=== PATIENT | female | born 1985 | race Caucasian/White ===

== ENCOUNTER 2016-09-07 16:54 | Inpatient (IN) | payer OTHER ==
[~2016-09-07] VITALS: Ht 165.1 cm; Wt 106.4 kg
[2016-09-08 13:09] VITALS: BP 108/59; PULSE 69; RESP 18
[2016-09-08 14:12] LABS: ADD UMIC YES; URINE BILIRUBIN (Dip) NEGATIVE (NEGATIVE); URINE BLOOD (Dip) TRACE (NEGATIVE); URINE COLOR LT. YELLOW (YELLOW); URINE GLUCOSE (Dip) NEGATIVE (NEGATIVE); URINE KETONES (Dip) NEGATIVE (NEGATIVE); URINE LEUKOCYTE ESTERASE (Dip) 1+ (NEGATIVE); URINE NITRITE (Dip) POSITIVE (NEGATIVE); URINE TOTAL PROTEIN (Dip) NEGATIVE (NEGATIVE); URINE UROBILINOGEN (Dip) 0.2 E.U./dL (0.1-1.0)
[2016-09-08 14:32] LABS: BACTERIA,URINE MANY; SQUAMOUS EPITHELIAL CELL,UR MODERATE
[2016-09-08] MEDS ORDERED: oxyCODONE 5 MG TAB PO PRN ×2 (15:00)
[2016-09-08] MEDS ORDERED: MAGNESIUM HYDROXIDE 30ML CUP PO PRN ×2 (15:00→19:00)
[2016-09-08] MEDS: FERROUS SULFATE (EC) 325 MG TAB PO SCH (17:56)
[2016-09-08] MEDS ORDERED: LACTULOSE 30ML CUP PO PRN (19:00)
[2016-09-08] MEDS ORDERED: ACETAMINOPHEN 325 MG TAB PO PRN (19:00)
[2016-09-08 20:00] VITALS: BP 99/55; RESP 18
[2016-09-08] MEDS: DOCUSATE SODIUM 100 MG CAP PO SCH (20:59)
[2016-09-08] MEDS: SENNA TAB PO SCH (20:59)
[2016-09-08] MEDS: HEPARIN 5,000 UNIT/0.5 ML VIAL SC SCH (21:00)
[2016-09-08] MEDS: METHOCARBAMOL 750 MG TAB PO SCH (21:00)
[2016-09-08] MEDS: HYDROCODONE/APAP (5/325) TAB PO PRN (21:07)
[2016-09-09] MEDS: ZOLPIDEM 5 MG TAB PO PRN ×2 (00:36→20:28)
[2016-09-09] MEDS: PANTOPRAZOLE (EC) 40 MG TAB PO SCH (06:36)
[2016-09-09 07:26] LABS: ADD SCAN DIFF NO
[2016-09-09 07:28] LABS: BASOPHIL # 0.1 10^3/ul (0.0-0.1); BASOPHILS % 0.6 % (0.0-2.0); EOSINOPHILS # 0.9 10^3/ul (0.0-0.5); HEMATOCRIT 37.7 % (37.0-47.0); HEMOGLOBIN 12.1 g/dl (12.0-16.0); LYMPHOCYTES # 3.2 10^3/ul (0.8-2.9); LYMPHOCYTES % 25.4 % (15.0-51.0); MEAN CORPUSCULAR HEMOGLOBIN 26.3 pg (29.0-33.0); MEAN CORPUSCULAR HGB CONC 32.1 g/dl (32.0-37.0); MEAN PLATELET VOLUME 10.6 fl (7.4-10.4); MONOCYTE # 0.9 10^3/ul (0.3-0.9); NEUTROPHIL # 7.6 10^3/ul (1.6-7.5); NEUTROPHILS % 59.4 % (39.0-77.0); PLATELET COUNT 322 10^3/UL (140-415); RED CELL DISTRIBUTION WIDTH 15.4 % (11.5-14.5); WHITE BLOOD COUNT 12.7 10^3/ul (4.8-10.8)
[2016-09-09 07:30] VITALS: BP 103/65; RESP 18
[2016-09-09 07:51] LABS: ALBUMIN 3.7 g/dl (3.3-4.9); ALBUMIN/GLOBULIN RATIO 1.12; CALCIUM 9.1 mg/dl (8.4-10.2); CREATININE 0.55 mg/dl (0.44-1.00); POTASSIUM 3.8 mmol/L (3.5-5.1)
[2016-09-09] MEDS: DOCUSATE SODIUM 100 MG CAP PO SCH ×2 (08:47→20:28)
[2016-09-09] MEDS: FERROUS SULFATE (EC) 325 MG TAB PO SCH ×3 (08:48→17:37)
[2016-09-09] MEDS: METHOCARBAMOL 750 MG TAB PO SCH ×3 (08:48→20:28)
[2016-09-09] MEDS: HEPARIN 5,000 UNIT/0.5 ML VIAL SC SCH ×2 (09:07→20:33)
--- NOTE | 2016-09-09 11:38 | HP ---
DATE OF ADMISSION: 09/08/2016 PHYSICAL MEDICINE AND REHABILITATION HISTORY AND PHYSICAL/PHYSICIAN POST- ADMISSION ASSESSMENT: DATE OF VISIT: 09/09/2016 REHABILITATION IMPAIRMENT GROUP: Cauda equina syndrome CHIEF COMPLAINT: Impaired mobility. Bilateral lower extremity weakness and paresthesias. HISTORY OF PRESENT ILLNESS: This is a 31-year-old female who initially presented to outside hospital after sustaining a fall while being assisted by EMS for right-sided flank pain. The patient reports she was diagnosed with gallstones and sent back home. The patient continued to have progressively worsening symptoms of right flank pain, also with radicular pain from her back into the lower extremities with onset of lower extremity weakness and paresthesias as well as urinary incontinence. The patient presented to outside hospital and had an MRI of her spine which showed a large L4 to L5 disk protrusion causing severe spinal canal stenosis with right greater than left neural foraminal narrowing; also noting L3 to L4 moderate central disk protrusion/ extrusion with mild spinal canal stenosis and small central disk protrusion at T7 to T8. The patient was evaluated by spine surgeon and in light of her symptoms and imaging findings, was suspected to have cauda equina syndrome and recommended urgent decompression. The patient went to the OR on and underwent a right L4 to L5 hemilaminectomy and microdiskectomy for cauda equina syndrome, right L4 to L5 disk herniation and lumbar radiculopathy by Dr. Brayden Patel with no reported intraoperative complications. Postoperatively, the patient reports improvement in her lower extremity weakness and improved sensation. Overall, more weakness and paresthesias in the right lower extremity than the left lower extremity. The patient's postoperative course was also complicated by hypotension which was thought to be multifactorial. The patient did work with physical and occupational therapies and currently she is requiring minimal assistance for her bed mobility and transfers. The patient is ambulating with moderate assistance 4 feet with a rolling walker. The patient is requiring moderate assistance for bathing, maximal assistance with lower body dressing and toileting, set up for grooming. Due to the patient's overall significant functional decline from baseline independent status and ongoing medical comorbidities, she was thought to benefit from acute inpatient rehabilitation. PAST MEDICAL AND SURGICAL HISTORY: As stated in history of present illness, also with history of iron deficiency anemia, on iron supplementation. FAMILY HISTORY: Reports noncontributory. SOCIAL HISTORY: Denies current toxic habits. The patient lives with her and children in a 1-story home with 1 step to enter. She reports prior level of function, she was completely independent for all functional mobility and self-care ADLs and was working in a rehab center. MEDICATIONS ON ADMISSION: Reviewed in electronic medical records includin. Protonix. 2. Ambien as needed. 3. Colace. 4. Robaxin. 5. Heparin. 6. Senna. 7. Milk of magnesia as needed. 8. Tylenol as needed. 9. Lactulose as needed. 10. Ferrous sulfate. 11. MiraLax as needed. 12. [place] 5/325 one to 2 tablets every 4 hours as needed. 13. Oxycodone 5 mg, 10 mg and 15 mg every 4 hours as needed 14. Simethicone as needed. 15. Dulcolax suppository as needed. ALLERGIES: NO KNOWN DRUG ALLERGIES. LABORATORIES AND IMAGING: Reviewed in electronic medical records. Admission labs today show WBC 12.7, hemoglobin 12.1, hematocrit 37.7, platelets 322. Sodium 135, potassium 3.8, BUN 17, creatinine 0.55. Urinalysis shows positive nitrites, 1+ leukocyte esterase, 10 to 25 WBCs with many bacteria. Urine culture is pending. REVIEW OF SYSTEMS: CONSTITUTIONAL: Denies fevers, chills. No night sweats. EYES: Denies any new visual changes. No pain. EARS, NOSE AND THROAT: Denies changes in hearing, no difficulty swallowing. RESPIRATORY: Denies shortness of breath or cough. CARDIOVASCULAR: Denies chest pain or dyspnea on exertion. GENITOURINARY: Has Steel catheter in place. No hematuria. GASTROINTESTINAL: Denies abdominal pain, no nausea or vomiting. Reports constipation. NEUROLOGICAL: Reports overall strength and sensation are improving since surgery. MUSCULOSKELETAL: She does report neuropathic type pain and occasional muscle spasms. SKIN: Denies itching. PSYCHIATRIC: Denies history of anxiety or depression. Review of systems otherwise negative. PHYSICAL EXAMINATION: VITAL SIGNS: Blood pressure 103/65, heart rate is 66, temperature 98.7 Fahrenheit, respiratory rate 18, saturating 99% on room air. GENERAL: The patient is well-nourished, well-developed, awake, alert, in no acute distress. HEENT: Normocephalic, atraumatic. Mucous membranes moist. Extraocular muscles are intact. NECK: Supple, nontender. RESPIRATORY: Lungs are clear to auscultation bilaterally. No crackles, wheezing. CARDIOVASCULAR: Regular rate and rhythm, audible S1, S2. ABDOMEN/: Abdomen soft, nontender, bowel sounds are present but hypoactive. No masses palpated. Steel catheter in place draining clear yellow urine. EXTREMITIES: Calves are nontender. There is no distal edema. No cyanosis. SKIN: There are no rashes. The lower back surgical incisional site has steristrips in place, clean, dry and intact. No active drainage is noted. There is some bruising in the lower abdominal area. PSYCHIATRIC: Affect and mood are appropriate. Oriented x3. NEUROLOGIC/MUSCULOSKELETAL: Follows simple commands and answers questions appropriately. Speech fluent. Strength is 5/5 in upper extremities, 3- to 3/5 in the right hip flexors, knee extensors, dorsiflexors, plantar flexors. Left lower extremity is 4 to 4+/5. The patient has decreased sensation to light touch below the umbilical region with decreased sensation of the right lower extremity more so than the left lower extremity. No increase in tone. No ankle clonus. IMPRESSION: 1. Status post right L4-L5 hemilaminectomy and microdiskectomy for right L4 to L5 disk herniation with severe spinal canal stenosis and cauda equina syndrome. 2. Evidence of L3-L4 moderate central disk protrusion/ extrusion with mild spinal canal stenosis, and small central disk protrusion at T7-T8 on MRI spine 3. Paraparesis. 4. Impaired mobility, gait and balance 5. Impaired self care ADLs 6. Acute pain syndrome with neuropathic pain and muscle spasms. 7. Neurogenic bowel. 8. Neurogenic bladder. 9. Urinary tract infection, present on admission 10. Leukocytosis 11. History of Iron deficiency anemia. 12. Hypotension. 13. Cholelithiasis PLAN: 1. The patient will be admitted for inpatient comprehensive interdisciplinary rehabilitation to address impairments and medical conditions listed above while assessing equipment needs and compensatory strategies with coordinated interdisciplinary services that will include physical and occupational therapies and close monitoring and treatment with 24-hour rehabilitation nursing. This interdisciplinary program will be performed under the direction of aircraft steel fabricator. The patient is anticipated to be able to tolerate 3 hours daily for at least 5 of 7 days per week of therapies. 2. Begin physical therapy for bed mobility, transfers, balance training, wheelchair mobility, gait training with assistive device and orthotic devices as needed. 3. Begin occupational therapies for activities of daily living, functional transfers, adaptive equipment evaluation, patient education. 4. Rehabilitation nursing to provide the patient education regarding spinal cord injury, as well as current medications as they relate to medical illness. Monitor pain, monitor bowel and bladder and administer bowel and bladder programs and reinforce those activities with physical and occupational therapies. 5. Dr. Whitley and associates will follow for management of medical comorbidities. 5. For her relative hypotension thought to be multifactorial, we will closely monitor vital signs, check orthostatics. Will defer to internal medicine in regards to further medical management. 6. For history of iron deficiency anemia, she is on iron supplementation. Monitor hemoglobin and hematocrit. 7. For neurogenic bowel, continue on a bowel program and adjust as needed for regular bowel movements. 8. For neurogenic bladder, currently, the patient has a Steel catheter in place. Urinalysis indicative of urinary tract infection. To start antibiotics and follow up urine cultures. Plan will be to remove steel catheter when more consistently mobile, check post void residuals and do in and out catheterizations as needed. 9. For her pain, caution with narcotics given her hypotension. Consider addition of gabapentin for neuropathic pain component. We will monitor her pain levels and adjust pain regimen further as needed. 10. Provide surgical site care and monitor for signs and symptoms of infection. She will need to follow up with spine surgeon. 11. Pressure relief strategies to include frequent turning and roho cushion while in wheelchair. REHABILITATION GOALS: Modified independent with bed mobility, transfers, self- care ADLs and progress with gait training with goal of at least stand by assistance level with assistive device. ESTIMATED LENGTH OF STAY: Approximately 10 to 14 days. Her case will be discussed at the weekly interdisciplinary conference. Anticipated disposition is to home with family support. PROGNOSIS: At the current time, this inpatient hospital rehabilitation stay is medically necessary to achieve important health and functional goals. The patient requires frequent physician visits, 24-hour rehabilitation nursing, and a coordinated intensive rehabilitation program as described above to address complex medical, nursing and rehabilitation needs. The patient has a good prognosis for benefiting from this program and returning to home and community. REHABILITATION PHYSICIAN POST-ADMISSION ASSESSMENT REVIEW: I have had the opportunity to examine the patient within 24 hours of admission and have reviewed the preadmission assessment and find it consistent with my examination and evaluation of patient. I confirmed that this patient is appropriate for admission and treatment in this inpatient rehabilitation hospital, needs intense interdisciplinary rehabilitation care and is expected to achieve meaningful goals within a reasonable period of time that are consistent with the planned discharge disposition as noted above. Dictated By: NEETA MORAN MD, RA/TIANA Conf#: [id number] DID#: [id number] MTDD
[2016-09-09] MEDS: BISACODYL 10 MG SUPP PR PRN (12:39)
[2016-09-09] MEDS: HYDROCODONE/APAP (5/325) TAB PO PRN ×2 (14:34→19:24)
[2016-09-09 19:40] VITALS: BP 105/55; RESP 18
[2016-09-09] MEDS: SENNA TAB PO SCH (20:28)
[2016-09-10] MEDS: LEVOFLOXACIN 500 MG TAB PO SCH (06:43)
[2016-09-10] MEDS: HYDROCODONE/APAP (5/325) TAB PO PRN ×4 (06:43→23:19)
[2016-09-10] MEDS: PANTOPRAZOLE (EC) 40 MG TAB PO SCH (06:44)
[2016-09-10] MEDS: METHOCARBAMOL 750 MG TAB PO SCH ×3 (09:24→20:06)
[2016-09-10] MEDS: DOCUSATE SODIUM 100 MG CAP PO SCH ×2 (09:24→20:06)
[2016-09-10] MEDS: FERROUS SULFATE (EC) 325 MG TAB PO SCH ×3 (09:24→18:01)
[2016-09-10] MEDS: HEPARIN 5,000 UNIT/0.5 ML VIAL SC SCH ×2 (09:28→20:12)
[2016-09-10] MEDS: BISACODYL 10 MG SUPP PR PRN (10:10)
[2016-09-10] MEDS: GABAPENTIN 100 MG CAP PO SCH ×2 (12:32→20:06)
[2016-09-10] MEDS: ZOLPIDEM 5 MG TAB PO PRN ×2 (20:06→22:34)
[2016-09-10] MEDS: SENNA TAB PO SCH (20:06)
[2016-09-10 20:08] VITALS: BP 94/49; RESP 20
[2016-09-11] MEDS: PANTOPRAZOLE (EC) 40 MG TAB PO SCH (05:06)
[2016-09-11] MEDS: LEVOFLOXACIN 500 MG TAB PO SCH (05:06)
[2016-09-11] MEDS: HYDROCODONE/APAP (5/325) TAB PO PRN ×4 (05:12→21:02)
[2016-09-11 05:13] VITALS: BP 95/50; PULSE 71
[2016-09-11 07:30] VITALS: BP 95/54; RESP 18
[2016-09-11] MEDS: GABAPENTIN 100 MG CAP PO SCH ×3 (08:34→21:01)
[2016-09-11] MEDS: HEPARIN 5,000 UNIT/0.5 ML VIAL SC SCH ×2 (08:34→21:15)
[2016-09-11] MEDS: METHOCARBAMOL 750 MG TAB PO SCH ×3 (08:34→21:01)
[2016-09-11] MEDS: DOCUSATE SODIUM 100 MG CAP PO SCH ×2 (08:34→21:01)
[2016-09-11] MEDS: FERROUS SULFATE (EC) 325 MG TAB PO SCH ×3 (08:37→17:46)
--- NOTE | 2016-09-11 11:53 | CONS ---
Date/Time of Note Date/Time of Note DATE: 09/11/16 TIME: 11:52 Consult Date/Type/Reason Admit Date/Time September 08, 2016 at 13:10 Initial Consult Date Objective Vital Signs Date Time Temp Pulse Resp B/P Pulse Ox O2 Delivery O2 Flow Rate FiO2 09/11/16 05:13 71 95/50 09/10/16 20:08 99.4 20 97 09/08/16 13:09 Room Air Intake and Output 09/10/16 09/10/16 09/11/16 15:00 23:00 07:00 Intake Total 1620 ml Output Total 1110 ml 800 ml Balance 510 ml -800 ml INTERDISCIPLINARY TEAM CONFERENCE BOWEL- Cont BLADDER-Fong SKIN- intact OT- DRESSING-min/mod BATHING-min/mod TOILETING-min PT- BED MOBILITY-min TRANSFERS-min AMBULATION-min/mod25 feet A/P- Interdisciplinary team conference held today. Please see interdisciplinary sheet. Working toward d.c. on 09/14 with post discharge follow up of physical therapy, occupational therapy. Results/Medications Result Diagram: 09/09/16 0620 09/09/16 0620 Medications Current Medications Bisacodyl (Dulcolax Supp) 10 mg DAILY PRN [place] CONSTIPATION Last administered on 09/10/16 10:10; Admin Dose 10 MG; Start 09/08/16 at 14:30 Docusate Sodium (Colace) 100 mg BID PO Last administered on 09/11/16 08:34; Admin Dose 100 MG; Start 09/08/16 at 21:00 Polyethylene Glycol (Miralax) 17 gm DAILY PRN PO CONSTIPATION; Start 09/08/16 at 15:00 Methocarbamol (Robaxin) 750 mg TID PO Last administered on 09/11/16 08:34; Admin Dose 750 MG; Start 09/08/16 at 21:00 Acetaminophen/ Hydrocodone Bitart ([place] (5/325)) 1 tab Q4H PRN PO MILD PAIN LEVEL 1-3 Last administered on 09/09/16 14:34; Admin Dose 1 TAB; Start at 15:00 Acetaminophen/ Hydrocodone Bitart ([place] (5/325)) 2 tab Q4H PRN PO MODERATE PAIN Last administered on 09/11/16 05:12; Admin Dose 2 TAB; Start 09/08/16 at 15:00 Oxycodone HCl (Roxicodone) 5 mg Q4H PRN PO PAIN LEVEL 2-4; Start 09/08/16 at 15 :00 Oxycodone HCl (Roxicodone) 10 mg Q4H PRN PO PAIN LEVEL 4-6; Start 09/08/16 at 15:00; Status Future Hold Oxycodone HCl (Roxicodone) 15 mg Q4H PRN PO PAIN LEVEL 6-10; Start 09/08/16 at 15:00; Status Future Hold Heparin Sodium (Porcine) (Heparin (5000 Units/0.5 ml)) 5,000 unit BID SC Last administered on 09/11/16 08:34; Admin Dose 5,000 UNIT; Start 09/08/16 at 21:00 Pantoprazole (Protonix Tab) 40 mg DAILY@06 PO Last administered on 09/11/16 05 :06; Admin Dose 40 MG; Start 09/09/16 at 06:00 Simethicone (Mylicon) 80 mg Q6H PRN PO DISTENSION/GAS/BLOATING; Start 09/08/16 at 15:00 Magnesium Hydroxide (Milk Of Mag) 30 ml BID PRN PO CONSTIPATION; Start at 19:00 Senna (Senokot) 1 tab HS PO Last administered on 09/10/16 20:06; Admin Dose 1 TAB; Start 09/08/16 at 21:00 Acetaminophen (Tylenol Tab) 650 mg Q4H PRN PO PAIN; Start 09/08/16 at 19:00 Lactulose (Enulose) 20 gm DAILY PRN PO CONSTIPATION; Start 09/08/16 at 19:00 Levofloxacin (Levaquin) 500 mg DAILY@06 PO Last administered on 09/11/16 05:06 ; Admin Dose 500 MG; Start 09/10/16 at 06:00 Gabapentin (Neurontin) 100 mg TID PO Last administered on 09/11/16 08:34; Admin Dose 100 MG; Start 09/10/16 at 13:00 ANDREW RO MD September 11, 2016 11:53 ANDREW RO MD September 11, 2016 11:53
--- NOTE | 2016-09-11 18:37 | CONS ---
DATE OF ADMISSION: 09/08/2016 DATE OF CONSULTATION: 09/11/2016 TYPE OF CONSULTATION: Medicine. HISTORY OF PRESENT ILLNESS: This is a 31-year-old lady who had had a fall while being assisted by E [facility] for evaluation of right flank pain. She had progressive lower extremity weakness with urinary in continence subsequent MRI showed L4-L5 disk protrusion with severe canal stenosis and foraminal narr owing. Initial evaluation was consistent with probable cauda equina syndrome requiring urgent decom pression. Patient underwent neurosurgery on 09/01/2016 with a right L4-L5 hemilaminectomy and micro diskectomy for cauda equina syndrome. No intraoperative complications. The patient was discharged to [facility] acute rehab unit where her postoperative recovery has been complicated by int ermittent hypotension thought secondary to postural changes. PAST MEDICAL HISTORY: Iron deficiency anemia. MEDICATIONS: Per chart include: 1. Protonix. 2. Ambien. 3. Colace. 4. Robaxin. 5. Heparin. 6. Senna. 7. [place]. 8. Oxycodone. ALLERGIES: NONE. SOCIAL HISTORY: Nonsmoker, no alcohol, no history of drug use. FAMILY HISTORY: Noncontributory. SYSTEMS REVIEW: A 14-point review of systems was negative other than that mentioned above. PHYSICAL EXAMINATION: GENERAL: Well-nourished, well-developed lady, comfortable at rest, no acute distress. VITAL SIGNS: Currently afebrile, pulse is 70, blood pressure 100/50, O2 saturation 96%, FIO2 of donna m air. NECK: Supple. No JVD or lymphadenopathy. CARDIAC: S1, S2, no added sounds or murmurs. CHEST: Diminished air entry bilaterally. ABDOMEN: Soft, nontender. No guarding or rebound. EXTREMITIES: No cyanosis, clubbing, edema. Grossly intact. NEUROLOGIC: Lower extremity weakness, but no specific focal deficits. LABORATORY DATA: White count 12.7, hemoglobin 12.1, platelets of 322. BUN 17, creatinine 0.55. Ur inalysis 1+. Positive for UTI. It grew Klebsiella pneumoniae sensitive to levofloxacin which she i s currently taking. IMPRESSION AND PLAN: 1. Recent fall. 2. Cauda equina syndrome, status post surgical decompression. 3. Klebsiella pneumoniae urinary tract infection. PLAN: 1. Continue current antibiotics of Levaquin started on 09/10/2016. 2. Continue physical therapy. 3. Continue pain control. 4. DVT and GI prophylaxis. 5. Anticipate discharge toward the end of this week. Dictated By: ELIZABETH SILVA/TIANA Conf#: [id number] DID#: [id number]
[2016-09-11 20:00] VITALS: BP 127/71; PULSE 87; RESP 18
[2016-09-11] MEDS: ZOLPIDEM 5 MG TAB PO PRN ×2 (21:01→22:40)
[2016-09-11] MEDS: SENNA TAB PO SCH (21:01)
[2016-09-11] MEDS: oxyCODONE 5 MG TAB PO PRN (22:40)
[2016-09-12] MEDS: HYDROCODONE/APAP (5/325) TAB PO PRN ×5 (06:06→21:26)
[2016-09-12] MEDS: PANTOPRAZOLE (EC) 40 MG TAB PO SCH (06:06)
[2016-09-12] MEDS: LEVOFLOXACIN 500 MG TAB PO SCH (06:06)
[2016-09-12] MEDS: DOCUSATE SODIUM 100 MG CAP PO SCH ×2 (09:12→20:20)
[2016-09-12] MEDS: HEPARIN 5,000 UNIT/0.5 ML VIAL SC SCH ×2 (09:12→20:21)
[2016-09-12] MEDS: GABAPENTIN 100 MG CAP PO SCH ×3 (09:12→20:20)
[2016-09-12] MEDS: METHOCARBAMOL 750 MG TAB PO SCH ×3 (09:12→20:19)
[2016-09-12] MEDS: FERROUS SULFATE (EC) 325 MG TAB PO SCH ×3 (09:12→17:01)
[2016-09-12] MEDS: oxyCODONE 5 MG TAB PO PRN ×2 (09:13→17:02)
--- NOTE | 2016-09-12 12:09 | CONS ---
Date/Time of Note Date/Time of Note DATE: 09/12/16 TIME: 12:08 Consult Date/Type/Reason Admit Date/Time September 08, 2016 at 13:10 Subjective Happy she is able to urinate Objective pulm-cta abd-soft Vital Signs Date Time Temp Pulse Resp B/P Pulse Ox O2 Delivery O2 Flow Rate FiO2 09/11/16 20:00 98.0 87 18 127/71 96 Room Air Intake and Output 09/11/16 09/11/16 09/12/16 15:00 23:00 07:00 Intake Total 1550 ml 900 ml Output Total 400 ml Balance 1150 ml 900 ml Results/Medications Result Diagram: 09/09/1661909/09/16619 Medications Current Medications Bisacodyl (Dulcolax Supp) 10 mg DAILY PRN [place] CONSTIPATION Last administered on 09/10/16 10:10; Admin Dose 10 MG; Start 09/08/16 at 14:30 Docusate Sodium (Colace) 100 mg BID PO Last administered on 09/12/16 09:12; Admin Dose 100 MG; Start 09/08/16 at 21:00 Polyethylene Glycol (Miralax) 17 gm DAILY PRN PO CONSTIPATION; Start 09/08/16 at 15:00 Methocarbamol (Robaxin) 750 mg TID PO Last administered on 09/12/16 09:12; Admin Dose 750 MG; Start 09/08/16 at 21:00 Acetaminophen/ Hydrocodone Bitart ([place] (5/325)) 1 tab Q4H PRN PO MILD PAIN LEVEL 1-3 Last administered on 09/11/16 12:59; Admin Dose 1 TAB; Start at 15:00 Acetaminophen/ Hydrocodone Bitart ([place] (5/325)) 2 tab Q4H PRN PO MODERATE PAIN Last administered on 09/12/16 06:06; Admin Dose 2 TAB; Start 09/08/16 at 15:00 Oxycodone HCl (Roxicodone) 5 mg Q4H PRN PO PAIN LEVEL 2-4 Last administered on 09/12/16 09:13; Admin Dose 5 MG; Start 09/08/16 at 15:00 Oxycodone HCl (Roxicodone) 10 mg Q4H PRN PO PAIN LEVEL 4-6; Start 09/08/16 at 15:00; Status Future Hold Oxycodone HCl (Roxicodone) 15 mg Q4H PRN PO PAIN LEVEL 6-10; Start 09/08/16 at 15:00; Status Future Hold Heparin Sodium (Porcine) (Heparin (5000 Units/0.5 ml)) 5,000 unit BID SC Last administered on 09/12/16 09:12; Admin Dose 5,000 UNIT; Start 09/08/16 at 21:00 Pantoprazole (Protonix Tab) 40 mg DAILY@06 PO Last administered on 09/12/16 06 :06; Admin Dose 40 MG; Start 09/09/16 at 06:00 Simethicone (Mylicon) 80 mg Q6H PRN PO DISTENSION/GAS/BLOATING; Start 09/08/16 at 15:00 Magnesium Hydroxide (Milk Of Mag) 30 ml BID PRN PO CONSTIPATION; Start at 19:00 Senna (Senokot) 1 tab HS PO Last administered on 09/11/16 21:01; Admin Dose 1 TAB; Start 09/08/16 at 21:00 Acetaminophen (Tylenol Tab) 650 mg Q4H PRN PO PAIN; Start 09/08/16 at 19:00 Lactulose (Enulose) 20 gm DAILY PRN PO CONSTIPATION; Start 09/08/16 at 19:00 Levofloxacin (Levaquin) 500 mg DAILY@06 PO Last administered on 09/12/16 06:06 ; Admin Dose 500 MG; Start 09/10/16 at 06:00 Gabapentin (Neurontin) 200 mg TID PO ; Start 09/12/16 at 13:00 Assessment/Plan Additional Assessment/Plan rehab- Cauda Equina s/p decomp lami Progressing well with rehab Neurogenic Bladder - still with some retention, but PVR less than 300 pain - increase neurontin cholelithiasis ANDREW RO MD September 12, 2016 12:08
--- NOTE | 2016-09-12 12:13 | CONS ---
Date/Time of Note Date/Time of Note DATE: 09/12/16 TIME: 12:11 Consult Date/Type/Reason Admit Date/Time September 08, 2016 at 13:10 Initial Consult Date Type of Consultation: Internal medicine Subjective Patient continues to remain stable no new events. Fong catheter has been removed she is voiding Objective Vital Signs Date Time Temp Pulse Resp B/P Pulse Ox O2 Delivery O2 Flow Rate FiO2 09/11/16 20:00 98.0 87 18 127/71 96 Room Air Intake and Output 09/11/16 09/11/16 09/12/16 15:00 23:00 07:00 Intake Total 1550 ml 900 ml Output Total 400 ml Balance 1150 ml 900 ml Exam PHYSICAL EXAMINATION: GENERAL: Well-nourished, well-developed lady, comfortable at rest, no acute distress. VITAL SIGNS: As above NECK: Supple. No JVD or lymphadenopathy. CARDIAC: S1, S2, no added sounds or murmurs. CHEST: Diminished air entry bilaterally. ABDOMEN: Soft, nontender. No guarding or rebound. EXTREMITIES: No cyanosis, clubbing, edema. Grossly intact. NEUROLOGIC: Lower extremity weakness, but no specific focal deficits. Results/Medications Result Diagram: 09/09/16 0620 09/09/16 0620 Medications Current Medications Bisacodyl (Dulcolax Supp) 10 mg DAILY PRN [place] CONSTIPATION Last administered on 09/10/16 10:10; Admin Dose 10 MG; Start 09/08/16 at 14:30 Docusate Sodium (Colace) 100 mg BID PO Last administered on 09/12/16 09:12; Admin Dose 100 MG; Start 09/08/16 at 21:00 Polyethylene Glycol (Miralax) 17 gm DAILY PRN PO CONSTIPATION; Start 09/08/16 at 15:00 Methocarbamol (Robaxin) 750 mg TID PO Last administered on 09/12/16 09:12; Admin Dose 750 MG; Start 09/08/16 at 21:00 Acetaminophen/ Hydrocodone Bitart ([place] (5/325)) 1 tab Q4H PRN PO MILD PAIN LEVEL 1-3 Last administered on 09/11/16 12:59; Admin Dose 1 TAB; Start at 15:00 Acetaminophen/ Hydrocodone Bitart ([place] (5/325)) 2 tab Q4H PRN PO MODERATE PAIN Last administered on 09/12/16 06:06; Admin Dose 2 TAB; Start 09/08/16 at 15:00 Oxycodone HCl (Roxicodone) 5 mg Q4H PRN PO PAIN LEVEL 2-4 Last administered on 09/12/16 09:13; Admin Dose 5 MG; Start 09/08/16 at 15:00 Oxycodone HCl (Roxicodone) 10 mg Q4H PRN PO PAIN LEVEL 4-6; Start 09/08/16 at 15:00; Status Future Hold Oxycodone HCl (Roxicodone) 15 mg Q4H PRN PO PAIN LEVEL 6-10; Start 09/08/16 at 15:00; Status Future Hold Heparin Sodium (Porcine) (Heparin (5000 Units/0.5 ml)) 5,000 unit BID SC Last administered on 09/12/16 09:12; Admin Dose 5,000 UNIT; Start 09/08/16 at 21:00 Pantoprazole (Protonix Tab) 40 mg DAILY@06 PO Last administered on 09/12/16 06 :06; Admin Dose 40 MG; Start 09/09/16 at 06:00 Simethicone (Mylicon) 80 mg Q6H PRN PO DISTENSION/GAS/BLOATING; Start 09/08/16 at 15:00 Magnesium Hydroxide (Milk Of Mag) 30 ml BID PRN PO CONSTIPATION; Start at 19:00 Senna (Senokot) 1 tab HS PO Last administered on 09/11/16 21:01; Admin Dose 1 TAB; Start 09/08/16 at 21:00 Acetaminophen (Tylenol Tab) 650 mg Q4H PRN PO PAIN; Start 09/08/16 at 19:00 Lactulose (Enulose) 20 gm DAILY PRN PO CONSTIPATION; Start 09/08/16 at 19:00 Levofloxacin (Levaquin) 500 mg DAILY@06 PO Last administered on 09/12/16 06:06 ; Admin Dose 500 MG; Start 09/10/16 at 06:00 Gabapentin (Neurontin) 200 mg TID PO ; Start 09/12/16 at 13:00 Assessment/Plan Chief Complaint/Hosp Course LABORATORY DATA: White count 12.7, hemoglobin 12.1, platelets of 322. BUN 17, creatinine 0.55. Urinalysis 1+. Positive for UTI. It grew Klebsiella pneumoniae sensitive to levofloxacin which she is currently taking. IMPRESSION AND PLAN: 1. Recent fall. 2. Cauda equina syndrome, status post surgical decompression. 3. Klebsiella pneumoniae urinary tract infection. 4. History of urinary retention PLAN: 1. Continue current antibiotics of Levaquin started on 09/10/2016. 2. Continue physical therapy. 3. Continue pain control. 4. DVT and GI prophylaxis. 5. Continue to monitor urine output post Fong catheter removal Problems: ELIZABETH SALAZAR MD, [facility] September 12, 2016 12:13
[2016-09-12] MEDS: POLYETHYLENE GLYCOL 17 GM PACKET PO PRN (12:16)
[2016-09-12 19:17] VITALS: BP 93/50; RESP 18
[2016-09-12] MEDS: SENNA TAB PO SCH (21:00)
[2016-09-13] MEDS: PANTOPRAZOLE (EC) 40 MG TAB PO SCH (05:03)
[2016-09-13] MEDS: HYDROCODONE/APAP (5/325) TAB PO PRN ×4 (05:03→19:42)
[2016-09-13] MEDS: LEVOFLOXACIN 500 MG TAB PO SCH (05:03)
[2016-09-13] MEDS: oxyCODONE 5 MG TAB PO PRN ×3 (06:16→22:03)
[2016-09-13 09:00] VITALS: BP 86/42; PULSE 85; RESP 18
[2016-09-13 09:05] VITALS: BP 93/59; PULSE 85; RESP 18
[2016-09-13] MEDS: FERROUS SULFATE (EC) 325 MG TAB PO SCH ×3 (09:25→18:09)
[2016-09-13] MEDS: GABAPENTIN 100 MG CAP PO SCH (09:25)
[2016-09-13] MEDS: METHOCARBAMOL 750 MG TAB PO SCH ×3 (09:25→20:34)
[2016-09-13] MEDS: DOCUSATE SODIUM 100 MG CAP PO SCH ×2 (09:26→20:35)
[2016-09-13] MEDS: HEPARIN 5,000 UNIT/0.5 ML VIAL SC SCH ×2 (09:28→20:48)
--- NOTE | 2016-09-13 10:05 | CONS ---
Date/Time of Note Date/Time of Note DATE: 09/13/16 TIME: 10:05 Consult Date/Type/Reason Admit Date/Time September 08, 2016 at 13:10 Type of Consultation: Internal medicine Subjective Still with pain Objective pulm-cta abd-soft sba ambulation Vital Signs Date Time Temp Pulse Resp B/P Pulse Ox O2 Delivery O2 Flow Rate FiO2 09/13/16 09:05 85 18 93/59 96 Room Air 09/13/16 09:00 98.3 Intake and Output 09/12/16 09/12/16 09/13/16 15:00 23:00 07:00 Intake Total 1200 ml 600 ml 1100 ml Output Total 450 ml 200 ml Balance 750 ml 400 ml 1100 ml Results/Medications Result Diagram: 09/09/1661909/09/16619 Medications Current Medications Bisacodyl (Dulcolax Supp) 10 mg DAILY PRN [place] CONSTIPATION Last administered on 09/10/16 10:10; Admin Dose 10 MG; Start 09/08/16 at 14:30 Docusate Sodium (Colace) 100 mg BID PO Last administered on 09/13/16 09:26; Admin Dose 100 MG; Start 09/08/16 at 21:00 Polyethylene Glycol (Miralax) 17 gm DAILY PRN PO CONSTIPATION Last administered on 09/12/16 12:16; Admin Dose 17 GM; Start 09/08/16 at 15:00 Methocarbamol (Robaxin) 750 mg TID PO Last administered on 09/13/16 09:25; Admin Dose 750 MG; Start 09/08/16 at 21:00 Acetaminophen/ Hydrocodone Bitart ([place] (5/325)) 1 tab Q4H PRN PO MILD PAIN LEVEL 1-3 Last administered on 09/12/16 14:42; Admin Dose 1 TAB; Start at 15:00 Acetaminophen/ Hydrocodone Bitart ([place] (5/325)) 2 tab Q4H PRN PO MODERATE PAIN Last administered on 09/13/16 09:26; Admin Dose 2 TAB; Start 09/08/16 at 15:00 Oxycodone HCl (Roxicodone) 5 mg Q4H PRN PO PAIN LEVEL 2-4 Last administered on 09/13/16 06:16; Admin Dose 5 MG; Start 09/08/16 at 15:00 Oxycodone HCl (Roxicodone) 10 mg Q4H PRN PO PAIN LEVEL 4-6; Start 09/08/16 at 15:00; Status Future Hold Oxycodone HCl (Roxicodone) 15 mg Q4H PRN PO PAIN LEVEL 6-10; Start 09/08/16 at 15:00; Status Future Hold Heparin Sodium (Porcine) (Heparin (5000 Units/0.5 ml)) 5,000 unit BID SC Last administered on 09/13/16 09:28; Admin Dose 5,000 UNIT; Start 09/08/16 at 21:00 Pantoprazole (Protonix Tab) 40 mg DAILY@06 PO Last administered on 09/13/16 05 :03; Admin Dose 40 MG; Start 09/09/16 at 06:00 Simethicone (Mylicon) 80 mg Q6H PRN PO DISTENSION/GAS/BLOATING; Start 09/08/16 at 15:00 Magnesium Hydroxide (Milk Of Mag) 30 ml BID PRN PO CONSTIPATION; Start at 19:00 Senna (Senokot) 1 tab HS PO Last administered on 09/11/16 21:01; Admin Dose 1 TAB; Start 09/08/16 at 21:00 Acetaminophen (Tylenol Tab) 650 mg Q4H PRN PO PAIN; Start 09/08/16 at 19:00 Lactulose (Enulose) 20 gm DAILY PRN PO CONSTIPATION; Start 09/08/16 at 19:00 Levofloxacin (Levaquin) 500 mg DAILY@06 PO Last administered on 09/13/16 05:03 ; Admin Dose 500 MG; Start 09/10/16 at 06:00 Gabapentin (Neurontin) 200 mg TID PO Last administered on 09/13/16 09:25; Admin Dose 200 MG; Start 09/12/16 at 13:00 Assessment/Plan Additional Assessment/Plan rehab- Cauda Equina s/p decomp lami Progressing well with rehab therapies Neurogenic Bladder - voiding well pain cholelithiasis ANDREW RO MD September 13, 2016 10:05
[2016-09-13] MEDS: GABAPENTIN 300 MG CAP PO SCH ×2 (12:35→20:35)
--- NOTE | 2016-09-13 17:07 | CONS ---
Date/Time of Note Date/Time of Note DATE: 09/13/16 TIME: 17:06 Consult Date/Type/Reason Admit Date/Time September 08, 2016 at 13:10 Type of Consultation: Internal medicine Subjective Patient comfortable no new events Objective Vital Signs Date Time Temp Pulse Resp B/P Pulse Ox O2 Delivery O2 Flow Rate FiO2 09/13/16 09:05 85 18 93/59 96 Room Air 09/13/16 09:00 98.3 Intake and Output 09/12/16 09/12/16 09/13/16 15:00 23:00 07:00 Intake Total 1200 ml 600 ml 1100 ml Output Total 450 ml 200 ml Balance 750 ml 400 ml 1100 ml Exam PHYSICAL EXAMINATION: GENERAL: Well-nourished, well-developed lady, comfortable at rest, no acute distress. VITAL SIGNS: As above NECK: Supple. No JVD or lymphadenopathy. CARDIAC: S1, S2, no added sounds or murmurs. CHEST: Diminished air entry bilaterally. ABDOMEN: Soft, nontender. No guarding or rebound. EXTREMITIES: No cyanosis, clubbing, edema. Grossly intact. NEUROLOGIC: Lower extremity weakness, but no specific focal deficits. Results/Medications Result Diagram: 09/09/1661909/09/16619 Medications Current Medications Bisacodyl (Dulcolax Supp) 10 mg DAILY PRN [place] CONSTIPATION Last administered on 09/10/16 10:10; Admin Dose 10 MG; Start 09/08/16 at 14:30 Docusate Sodium (Colace) 100 mg BID PO Last administered on 09/13/16 09:26; Admin Dose 100 MG; Start 09/08/16 at 21:00 Polyethylene Glycol (Miralax) 17 gm DAILY PRN PO CONSTIPATION Last administered on 09/12/16 12:16; Admin Dose 17 GM; Start 09/08/16 at 15:00 Methocarbamol (Robaxin) 750 mg TID PO Last administered on 09/13/16 12:35; Admin Dose 750 MG; Start 09/08/16 at 21:00 Acetaminophen/ Hydrocodone Bitart ([place] (5/325)) 1 tab Q4H PRN PO MILD PAIN LEVEL 1-3 Last administered on 09/12/16 14:42; Admin Dose 1 TAB; Start at 15:00 Acetaminophen/ Hydrocodone Bitart ([place] (5/325)) 2 tab Q4H PRN PO MODERATE PAIN Last administered on 09/13/16 14:22; Admin Dose 2 TAB; Start 09/08/16 at 15:00 Oxycodone HCl (Roxicodone) 5 mg Q4H PRN PO PAIN LEVEL 2-4 Last administered on 09/13/16 16:45; Admin Dose 5 MG; Start 09/08/16 at 15:00 Oxycodone HCl (Roxicodone) 10 mg Q4H PRN PO PAIN LEVEL 4-6; Start 09/08/16 at 15:00; Status Future Hold Oxycodone HCl (Roxicodone) 15 mg Q4H PRN PO PAIN LEVEL 6-10; Start 09/08/16 at 15:00; Status Future Hold Heparin Sodium (Porcine) (Heparin (5000 Units/0.5 ml)) 5,000 unit BID SC Last administered on 09/13/16 09:28; Admin Dose 5,000 UNIT; Start 09/08/16 at 21:00 Pantoprazole (Protonix Tab) 40 mg DAILY@06 PO Last administered on 09/13/16 05 :03; Admin Dose 40 MG; Start 09/09/16 at 06:00 Simethicone (Mylicon) 80 mg Q6H PRN PO DISTENSION/GAS/BLOATING; Start 09/08/16 at 15:00 Magnesium Hydroxide (Milk Of Mag) 30 ml BID PRN PO CONSTIPATION; Start at 19:00 Senna (Senokot) 1 tab HS PO Last administered on 09/11/16 21:01; Admin Dose 1 TAB; Start 09/08/16 at 21:00 Acetaminophen (Tylenol Tab) 650 mg Q4H PRN PO PAIN; Start 09/08/16 at 19:00 Lactulose (Enulose) 20 gm DAILY PRN PO CONSTIPATION; Start 09/08/16 at 19:00 Levofloxacin (Levaquin) 500 mg DAILY@06 PO Last administered on 09/13/16 05:03 ; Admin Dose 500 MG; Start 09/10/16 at 06:00 Gabapentin (Neurontin) 300 mg TID PO Last administered on 09/13/16 12:35; Admin Dose 300 MG; Start 09/13/16 at 13:00 Assessment/Plan Chief Complaint/Hosp Course IMPRESSION AND PLAN: 1. Recent fall. 2. Cauda equina syndrome, status post surgical decompression. 3. Klebsiella pneumoniae urinary tract infection. 4. History of urinary retention PLAN: 1. Continue current antibiotics of Levaquin started on 09/10/2016. 2. Continue physical therapy. 3. Continue pain control. 4. DVT and GI prophylaxis. Discharge planning Problems: ELIZABETH SALAZAR MD, [facility] September 13, 2016 17:07
[2016-09-13 20:00] VITALS: BP 96/54; RESP 18
[2016-09-13] MEDS: SENNA TAB PO SCH (20:34)
[2016-09-13] MEDS: HYDROmorphONE 2 MG TAB PO PRN (20:38)
[2016-09-13] MEDS: ZOLPIDEM 5 MG TAB PO PRN ×2 (20:47→22:03)
[2016-09-14] MEDS: HYDROmorphONE 2 MG TAB PO PRN (04:45)
[2016-09-14] MEDS: PANTOPRAZOLE (EC) 40 MG TAB PO SCH (06:02)
[2016-09-14] MEDS: LEVOFLOXACIN 500 MG TAB PO SCH (06:02)
[2016-09-14 07:30] VITALS: BP 108/59; RESP 18
[2016-09-14] MEDS: HYDROCODONE/APAP (5/325) TAB PO PRN (08:32)
[2016-09-14] MEDS: FERROUS SULFATE (EC) 325 MG TAB PO SCH ×2 (08:33→12:16)
[2016-09-14] MEDS: METHOCARBAMOL 750 MG TAB PO SCH ×2 (08:33→12:16)
[2016-09-14] MEDS: HEPARIN 5,000 UNIT/0.5 ML VIAL SC SCH (08:33)
[2016-09-14] MEDS: GABAPENTIN 300 MG CAP PO SCH ×2 (08:33→12:16)
[2016-09-14] MEDS: DOCUSATE SODIUM 100 MG CAP PO SCH (08:33)
[2016-09-14] MEDS: POLYETHYLENE GLYCOL 17 GM PACKET PO PRN (08:37)
--- NOTE | 2016-09-14 10:47 | CONS ---
Date/Time of Note Date/Time of Note DATE: 09/14/16 TIME: 10:47 Consult Date/Type/Reason Admit Date/Time September 08, 2016 at 13:10 Type of Consultation: Internal medicine Subjective Patient stable no new events Required increasing pain medications last night. Objective Vital Signs Date Time Temp Pulse Resp B/P Pulse Ox O2 Delivery O2 Flow Rate FiO2 09/14/16 07:30 98.6 64 18 108/59 99 09/13/16 09:05 Room Air Intake and Output 09/13/16 09/13/16 09/14/16 15:00 23:00 07:00 Intake Total 1200 ml 360 ml 700 ml Output Total 1050 ml 200 ml 800 ml Balance 150 ml 160 ml -100 ml Exam PHYSICAL EXAMINATION: GENERAL: Well-nourished, well-developed lady, comfortable at rest, no acute distress. VITAL SIGNS: As above NECK: Supple. No JVD or lymphadenopathy. CARDIAC: S1, S2, no added sounds or murmurs. CHEST: Diminished air entry bilaterally. ABDOMEN: Soft, nontender. No guarding or rebound. EXTREMITIES: No cyanosis, clubbing, edema. Grossly intact. NEUROLOGIC: Lower extremity weakness, but no specific focal deficits. Results/Medications Medications Current Medications Bisacodyl (Dulcolax Supp) 10 mg DAILY PRN [place] CONSTIPATION Last administered on 09/10/16 10:10; Admin Dose 10 MG; Start 09/08/16 at 14:30 Docusate Sodium (Colace) 100 mg BID PO Last administered on 09/14/16 08:33; Admin Dose 100 MG; Start 09/08/16 at 21:00 Polyethylene Glycol (Miralax) 17 gm DAILY PRN PO CONSTIPATION Last administered on 09/14/16 08:37; Admin Dose 17 GM; Start 09/08/16 at 15:00 Methocarbamol (Robaxin) 750 mg TID PO Last administered on 09/14/16 08:33; Admin Dose 750 MG; Start 09/08/16 at 21:00 Acetaminophen/ Hydrocodone Bitart ([place] (5/325)) 1 tab Q4H PRN PO MILD PAIN LEVEL 1-3 Last administered on 09/12/16 14:42; Admin Dose 1 TAB; Start at 15:00 Acetaminophen/ Hydrocodone Bitart ([place] (5/325)) 2 tab Q4H PRN PO MODERATE PAIN Last administered on 09/14/16 08:32; Admin Dose 2 TAB; Start 09/08/16 at 15:00 Oxycodone HCl (Roxicodone) 5 mg Q4H PRN PO PAIN LEVEL 2-4 Last administered on 09/13/16 22:03; Admin Dose 5 MG; Start 09/08/16 at 15:00 Oxycodone HCl (Roxicodone) 10 mg Q4H PRN PO PAIN LEVEL 4-6; Start 09/08/16 at 15:00; Status Future Hold Oxycodone HCl (Roxicodone) 15 mg Q4H PRN PO PAIN LEVEL 6-10; Start 09/08/16 at 15:00; Status Future Hold Heparin Sodium (Porcine) (Heparin (5000 Units/0.5 ml)) 5,000 unit BID SC Last administered on 09/13/16 09:28; Admin Dose 5,000 UNIT; Start 09/08/16 at 21:00 Pantoprazole (Protonix Tab) 40 mg DAILY@06 PO Last administered on 09/14/16 06 :02; Admin Dose 40 MG; Start 09/09/16 at 06:00 Simethicone (Mylicon) 80 mg Q6H PRN PO DISTENSION/GAS/BLOATING; Start 09/08/16 at 15:00 Magnesium Hydroxide (Milk Of Mag) 30 ml BID PRN PO CONSTIPATION; Start at 19:00 Senna (Senokot) 1 tab HS PO Last administered on 09/13/16 20:34; Admin Dose 1 TAB; Start 09/08/16 at 21:00 Acetaminophen (Tylenol Tab) 650 mg Q4H PRN PO PAIN; Start 09/08/16 at 19:00 Lactulose (Enulose) 20 gm DAILY PRN PO CONSTIPATION; Start 09/08/16 at 19:00 Levofloxacin (Levaquin) 500 mg DAILY@06 PO Last administered on 09/14/16 06:02 ; Admin Dose 500 MG; Start 09/10/16 at 06:00 Gabapentin (Neurontin) 300 mg TID PO Last administered on 09/14/16 08:33; Admin Dose 300 MG; Start 09/13/16 at 13:00 Hydromorphone HCl (Dilaudid) 1 mg Q4 PRN PO FOR SEVERE PAIN Last administered on 09/14/16t 04:45; Admin Dose 1 MG; Start 09/13/16 at 20:30 Assessment/Plan Chief Complaint/Hosp Course IMPRESSION AND PLAN: 1. Recent fall. 2. Cauda equina syndrome, status post surgical decompression. 3. Klebsiella pneumoniae urinary tract infection. 4. History of urinary retention PLAN: 1. Continue current antibiotics of Levaquin started on 09/10/2016. 2. Continue physical therapy. 3. Continue pain control. 4. DVT and GI prophylaxis. Discharge planning Problems: [facility], [facility] September 14, 2016 10:47
[2016-09-14] MEDS: oxyCODONE 5 MG TAB PO PRN (12:02)
== END 2016-09-14 13:15 | disposition home health service (06) | DRG 52 ==
LOC: VRC 09-08 13:10
PROVIDERS: ADMIT Physical Medicine & Rehabilitation; ATTEND Internal Medicine Pulmonary Disease
DX: G82.20 Paraplegia, unspecified (principal); K59.2 Neurogenic bowel, not elsewhere classified; I95.9 Hypotension, unspecified; N39.0 Urinary tract infection, site not specified; N31.9 Neuromuscular dysfunction of bladder, unspecified; G83.4 Cauda equina syndrome; K80.20 Calculus of gallbladder without cholecystitis without obstruction; Z74.09 Other reduced mobility; I10 Essential (primary) hypertension; M79.2 Neuralgia and neuritis, unspecified; M62.838 Other muscle spasm; B96.1 Klebsiella pneumoniae [K. pneumoniae] as the cause of diseases classified elsewhere
CPT/HCPCS: 80053; 81001; 81003; 85025; 87081; 87086; 97110; 97112; 97116; 97162; 97167; 97530; 97535; J1170; J1644; L1932; L2820